=== PATIENT | female | born 2000 | race Caucasian/White ===

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

== ENCOUNTER → 2019-01-04 | Outpatient (REF) | payer OTHER ==
[~2019-01-04] MED LIST changes: +ACET-683 PO; +IBUP80TA PO; +PREN1TAB11 PO
== END ==
LOC: M LAB REF 17:13
PROVIDERS: ATTEND Advanced Practice Midwife
DX: Z36.85 Encounter for antenatal screening for Streptococcus B (principal)

== ENCOUNTER 2019-01-24 02:09 | Inpatient (IN) | payer OTHER ==
[~2019-01-24] VITALS: Ht 160 cm; Wt 51.6 kg
[2019-01-24] VITALS (53 sets, daily range): BP systolic 95–144; BP diastolic 50–91
[~2019-01-24 02:09] MED LIST changes: -ACET-683 PO; -IBUP80TA PO; -PREN1TAB11 PO
[2019-01-24] MEDS ORDERED: PENICILLIN G POTASSIUM IV 5 MU in D5W MINI-BAG PLUS 100 ML IV STA ×2 (06:41→10:08)
[2019-01-24] MEDS ORDERED: BUTORPHANOL 2 MG/ML INJ (J0595) IV ONE (06:45)
[2019-01-24] MEDS ORDERED: PROMETHAZINE INJ 25 MG/ML VIAL (J2550) IV PRN (06:45)
[2019-01-24] MEDS ORDERED: BUTORPHANOL 2 MG/ML INJ (J0595) As Ordered ONE (06:47)
[2019-01-24] MEDS ORDERED: PREN1TAB11 PO (07:01)
[2019-01-24 07:09] LABS: HEMOGLOBIN 13.7 g/dl (12.0-15.5); MEAN CORPUSCULAR HEMOGLOBIN 31.4 pg (27.0-33.0); MEAN CORPUSCULAR HGB CONC 35.1 g/dl (32.0-36.5); MEAN CORPUSCULAR VOLUME 89.4 fl (80.0-96.0); PLATELET COUNT, AUTOMATED 303 10^3/uL (150-450); RED BLOOD COUNT 4.36 10^6/uL (4.00-5.40); WHITE BLOOD COUNT 18.5 10^3/uL (4.0-10.0)
[2019-01-24] MEDS ORDERED: PENICILLIN G POTASSIUM IV 2.5 MU in IV 1 EA IV SCH (10:45)
[2019-01-24] MEDS ORDERED: FENTANYL 2MCG/ML ROPIVACAINE 0.2% IN 0.9% NACL 100ML IVBAG As Ordered ONE (11:08)
[2019-01-24] MEDS ORDERED: diphenhydrAMINE INJ 50MG/ML VIAL (J1200) IV PRN (12:30)
[2019-01-24] MEDS ORDERED: NALOXONE INJ 0.4 MG/1 ML VIAL (J2310) IV PRN (12:30)
[2019-01-24] MEDS ORDERED: EPIDURAL COMMENT XX SCH (12:30)
[2019-01-24] MEDS ORDERED: REFRIGERATOR IV KEYS XX PRN (12:30)
[2019-01-24] MEDS: FENTANYL/ROPIVACAINE/NACL BAG 100 ML EPIDURAL SCH ×2 (12:30→19:02)
[2019-01-24] MEDS ORDERED: EPIDURAL/PCA KEYS XX PRN (12:30)
[2019-01-24] MEDS ORDERED: ONDANSETRON 4MG/2ML VIAL (J2405) IV PRN (12:30)
[2019-01-24] MEDS ORDERED: LR 1,000 ML IV SCH (13:00)
[2019-01-24] MEDS ORDERED: OXYTOCIN 30 UNITS IN 0.9% NaCl 500ML IV BAG (J2590) As Ordered ONE (13:04)
[2019-01-24] MEDS: ePHEDrine SULFATE 25 MG/5 ML(5MG/ML) SYRINGE IV PRN ×3 (13:10→14:28)
[2019-01-24] MEDS: PENICILLIN G POTASSIUM IV 2.5 MU in IV 1 EA IV SCH ×2 (14:03→18:15)
--- NOTE | 2019-01-24 15:05 | HPE ---
DATE OF ADMISSION: 01/24/2019 REASON FOR ADMISSION: Labor. HISTORY OF PRESENT ILLNESS: This patient is a 18-year-old 1, para 0 who presents at 38 weeks 6 days estimated gestational age by last menstrual period confirmed by first trimester ultrasound with complaints of contractions. She reports contractions have worsened throughout the night. Denies any vaginal bleeding or leakage of fluid. Her course has been unremarkable. She initiated care in her first trimester and has been appropriate throughout. PAST MEDICAL HISTORY: History of depression and anxiety. PAST SURGICAL HISTORY: Oral surgery. OBSTETRICAL HISTORY: She is 1. MEDICATIONS: Includes: - vitamins. ALLERGIES: She has no known drug allergies. SOCIAL HISTORY: She is a former smoker. She denies any alcohol or drug use during . PHYSICAL EXAMINATION Vital signs are stable. She is afebrile. General appearance: Well appearing, no acute distress. Lungs: Clear to auscultation bilaterally. Cardiovascular: Heart regular rate and rhythm. Abdomen is gravid, nontender. Estimated weight 2800 grams. Cervical exam: Initially was 1 cm, 50% effaced. Reexamined 3 hours later she was 3 cm, 75%, -2 station. LABORATORIES:: Blood type is O positive. Antibody screen is negative. Rubella is immune. RPR is nonreactive. Hepatitis surface antigen negative. HIV is negative. Hep C is nonreactive. Chlamydia and gonorrhea screens are negative. She had a normal 1 hour Glucola. She is Group B Streptococcus (GBS) positive. ASSESSMENT: 1. This patient is a 18-year-old 1, para 0 at 38 and 6 in active labor. 2. GBS positive. 3. Reassuring status. PLAN: 1. Admit to labor and delivery, CBC, RPR, type and screen. 2. Antibiotics for GBS prophylaxis. 3. The patient thoroughly counseled in regards to admission to labor and delivery. I discussed medications well as procedures performed in labor and delivery. She has also been verbally consented for emergency surgery, blood products, anesthesia and desires to proceed with admission. [facility]
[2019-01-24] MEDS ORDERED: OXYTOCIN DRIP 30 UNITS in IV 1 EA IV SCH (19:17)
[2019-01-24] MEDS ORDERED: ACETAMINOPHEN 500 MG TAB PO PRN (19:30)
[2019-01-24] MEDS ORDERED: IBUPROFEN 800 MG TAB PO PRN (19:30)
[2019-01-24] MEDS ORDERED: DIBUCAINE 1% OINTMENT 30GM TOP PRN (19:30)
[2019-01-24] MEDS ORDERED: METHYLERGONOVINE MALEATE 0.2 MG TAB PO PRN (19:30)
[2019-01-24] MEDS ORDERED: RHOGAM 300 MCG (1500 IU) INJ (J2790) IM SCH (19:30)
[2019-01-24] MEDS ORDERED: MOM 30ML SUSPENSION UDC PO PRN (19:30)
[2019-01-24] MEDS ORDERED: IBUPROFEN 600 MG TAB PO PRN (19:30)
[2019-01-24] MEDS ORDERED: ANUSOL HC CREAM 30GM TOP PRN (19:30)
[2019-01-24] MEDS ORDERED: MEASLES,MUMPS,RUBELLA VACCINE INJ (MMR-II) (90707) SC SCH (19:30)
[2019-01-24] MEDS ORDERED: ACETAMINOPHEN TAB 650MG DOSE (2X325MG) PO PRN (19:30)
[2019-01-24] MEDS ORDERED: DOCUSATE SODIUM 100 MG CAP PO PRN (19:30)
[2019-01-24] MEDS ORDERED: SLF 3 ML SYR IV SCH (22:00)
[2019-01-25 06:00] VITALS: BP 117/82
--- NOTE | 2019-01-25 06:26 | DN ---
DATE OF PROCEDURE: 01/24/2019 TIME OF : 1747 GENDER: Female. APGARS: 8 and 9. WEIGHT: 2260 grams or 5 pounds 0 ounces. LACERATIONS: None. ANESTHESIA: Epidural. COUNTS: 5 laparotomy sponges accounted for prior to and after delivery. DELIVERY NOTE: On 01/24/2019, at 1747, Ms. Truong, a 18-year-old, 1, now para 1, had a spontaneous vaginal delivery of viable female , Apgars 8 and 9, and weight was 2260 grams or 5 pounds 0 ounces. Head was delivered occiput anterior (OA) over an intact perineum followed by delivery of the shoulders and corpus. Infant was handed to mom with a good cry. Cord was clamped times two and was cut by the father of baby under my direction. Placenta was then drained and delivered grossly intact. A premixed bag of 500 mL of normal saline with 30 units of Pitocin was then bolused along with uterine massage until the uterus was firm. On inspection, the cervix, vagina and perineum was grossly intact and hemostatic. Mom and baby in recovery on stable condition.
[2019-01-25] MEDS: PRENATAL VITAMINS CHEWABLE TABLET PO SCH (07:49)
[2019-01-25 18:24] VITALS: BP 130/81
[2019-01-26 05:50] VITALS: BP 103/66
[2019-01-26] MEDS ORDERED: IBUP80TA PO (06:59)
[2019-01-26] MEDS ORDERED: ACET-683 PO (06:59)
[2019-01-26] MEDS: PRENATAL VITAMINS CHEWABLE TABLET PO SCH (07:59)
== END 2019-01-26 11:35 | disposition home or self-care (01) | DRG 560 ==
LOC: M LDO 02:09 → M LDI 06:26 → M OBS 20:21
PROVIDERS: ADMIT Obstetrics & Gynecology; ATTEND Obstetrics & Gynecology
PROC: 10E0XZZ Delivery of Products of Conception, External Approach (ICD-10-PCS; principal; 2019-01-24)
DX: O99.824 Streptococcus B carrier state complicating childbirth (principal); Z37.0 Single live birth; Z3A.38 38 weeks gestation of pregnancy

== ENCOUNTER 2020-01-08 14:41 | Emergency (ER) | payer OTHER ==
[~2020-01-08] VITALS: Ht 157.5 cm; Wt 36.5 kg
[~2020-01-08 14:41] MED LIST changes: +ACET-683 PO; +IBUP80TA PO; +PREN1TAB11 PO
[2020-01-08] MEDS ORDERED: ALBUTEROL 90 MCG/ACT 8GM HFA INHALER INH ONE (15:45)
[2020-01-08] MEDS ORDERED: ACETAMINOPHEN TAB 650MG DOSE (2X325MG) PO ONE (16:15)
[2020-01-08] MEDS ORDERED: PROAAER10 INH (17:34)
--- NOTE | 2020-01-08 17:35 | REPVR ---
PROCEDURE INFORMATION: Exam: XR Chest, 1 View Exam date and time: 01/08/2020 4:56 PM Age: 19 years old Clinical indication: Cough; Additional info: Cold sympt TECHNIQUE: Imaging protocol: XR of the chest Views: 1 view. COMPARISON: No relevant prior studies available. FINDINGS: Lungs: Small patchy infiltrate in the left lung base with the surrounding interstitial prominence. Pleural space: Unremarkable. No pleural effusion. No pneumothorax. Heart/Mediastinum: Unremarkable. No cardiomegaly. Bones/joints: Unremarkable. IMPRESSION: Left lower lobe pneumonia Electronically signed by: Sana Wu On 01/08/2020 17:35:19 PM
[2020-01-08] MEDS ORDERED: LEVA1TAB2 PO (17:39)
[2020-01-08 17:47] VITALS: BP 105/66
== END 2020-01-08 17:49 | disposition home or self-care (01) ==
LOC: M ED 14:41
DX: J18.9 Pneumonia, unspecified organism (principal); R50.9 Fever, unspecified; F17.200 Nicotine dependence, unspecified, uncomplicated

== ENCOUNTER 2020-01-30 20:46 | Emergency (ER) | payer OTHER ==
[~2020-01-30] VITALS: Ht 157.5 cm; Wt 35.2 kg
[~2020-01-30 20:46] MED LIST changes: +LEVA1TAB2 PO; +PROAAER10 INH
[2020-01-30] MEDS ORDERED: SUCRALFATE 1 GM TAB PO ONE (21:00)
[2020-01-30 22:01] VITALS: BP 127/78
== END 2020-01-30 22:02 | disposition home or self-care (01) ==
LOC: EDBD 20:46 → M ED 20:46
DX: R09.89 Other specified symptoms and signs involving the circulatory and respiratory systems (principal); T18.128A Food in esophagus causing other injury, initial encounter; R11.10 Vomiting, unspecified; Y92.89 Other specified places as the place of occurrence of the external cause; F41.9 Anxiety disorder, unspecified

== ENCOUNTER → 2021-03-13 | Outpatient (REF) | payer OTHER ==
[2021-03-13 17:11] LABS: HEMATOCRIT 39.1 % (36.0-47.0); HEMOGLOBIN 13.4 g/dl (12.0-15.5); MEAN CORPUSCULAR HEMOGLOBIN 30.7 pg (27.0-33.0); MEAN CORPUSCULAR HGB CONC 34.3 g/dl (32.0-36.5); MEAN CORPUSCULAR VOLUME 89.5 fl (80.0-96.0); PLATELET COUNT, AUTOMATED 255 10^3/uL (150-450); RED BLOOD COUNT 4.37 10^6/uL (4.00-5.40); WHITE BLOOD COUNT 11.2 10^3/uL (4.0-10.0)
[2021-03-13 18:28] LABS: HCG, SERUM QUANTITATIVE 3173 MIU/ML; HEPATITIS B SURFACE ANTIGEN NEGATIVE (NEGATIVE); HEPATITIS C VIRUS ABY INDEX 0.1 INDEX (<0.8); HIV 1&2 SCREEN CENTAUR NEGATIVE (NEGATIVE)
== END ==
LOC: M LAB REF 16:38
PROVIDERS: ATTEND Obstetrics & Gynecology
DX: Z32.01 Encounter for pregnancy test, result positive (principal)

== ENCOUNTER → 2021-03-20 | Outpatient (REF) | payer OTHER ==
[~2021-03-20] MED LIST changes: +MISO200T56 PO
== END ==
LOC: M LAB REF 16:35
PROVIDERS: ATTEND Advanced Practice Midwife
DX: O20.0 Threatened abortion (principal); R31.9 Hematuria, unspecified; Z3A.00 Weeks of gestation of pregnancy not specified

== ENCOUNTER 2021-03-21 12:28 | Emergency (ER) | payer OTHER ==
[~2021-03-21] VITALS: Ht 157.5 cm; Wt 44.7 kg
[~2021-03-21 12:28] MED LIST changes: -MISO200T56 PO
[2021-03-21 13:30] LABS: BASO % 0.2 % (0.0-1.0); EOS # 0.1 10^3/uL (0.0-0.5); EOS % 0.4 % (0.0-3.0); HEMATOCRIT 39.1 % (36.0-47.0); HEMOGLOBIN 13.3 g/dl (12.0-15.5); LYMPH # 2.1 10^3/uL (1.5-5.0); LYMPH % 10.7 % (24.0-44.0); MEAN CORPUSCULAR HEMOGLOBIN 30.8 pg (27.0-33.0); MEAN CORPUSCULAR VOLUME 90.5 fl (80.0-96.0); MONO # 0.8 10^3/uL (0.0-0.8); MONO % 4.3 % (2.0-8.0); NEUTROPHILS # 16.4 10^3/uL (1.5-8.5); NEUTROPHILS % 83.9 % (36.0-66.0); PLATELET COUNT, AUTOMATED 292 10^3/uL (150-450); RED BLOOD COUNT 4.32 10^6/uL (4.00-5.40); WHITE BLOOD COUNT 19.5 10^3/uL (4.0-10.0)
[2021-03-21] MEDS ORDERED: MORPHINE 4 MG/ML 1ML VIAL/SYRINGE (J2270) IV ONE (13:45)
[2021-03-21] MEDS ORDERED: NS 1,000 ML IV ONE (13:45)
[2021-03-21 13:55] LABS: BLOOD UREA NITROGEN 7 MG/DL (7-18); CALCIUM LEVEL 9.2 MG/DL (8.5-10.1); CARBON DIOXIDE LEVEL 29 MEQ/L (21-32); CHLORIDE LEVEL 106 MEQ/L (98-107); CREATININE FOR GFR 0.51 MG/DL (0.55-1.30); GLOMERULAR FILTRATION RATE > 60.0 (>60); GLUCOSE, FASTING 107 MG/DL (70-100); HCG, SERUM QUANTITATIVE 641 MIU/ML; POTASSIUM SERUM 4.3 MEQ/L (3.5-5.1); SODIUM LEVEL 139 MEQ/L (136-145)
--- NOTE | 2021-03-21 13:55 | REP ---
INDICATION: miscarriage. COMPARISON: None. TECHNIQUE: Transabdominal scanning with Doppler FINDINGS: Within the uterus there is an elongated slightly irregular anechoic structure with partial increased echoes surrounding it consistent with a decidual reaction. Within the gestational sac there is echogenic material the mean crown-rump length measurement of which is consistent with a 9 week 4 day gestational age. Doppler of the pole shows no cardiac activity. Mixed echoes are seen adjacent to the developing chorion. IMPRESSION: There is evidence of demise and impending spontaneous . Multifocal subchorionic hemorrhages are also identified. <Electronically signed by Cabrera Huertas > 03/21/21 [id number]
[2021-03-21] MEDS ORDERED: MISO200T56 PO (15:07)
[2021-03-21] MEDS ORDERED: PERC5TAB12 PO (15:07)
[2021-03-21] MEDS ORDERED: ONDANSETRON 4MG/2ML VIAL IV ONE (15:10)
[2021-03-21] MEDS ORDERED: MORPHINE 2 MG/ML 1ML VIAL (J2270) IV ONE (15:10)
[2021-03-21 15:55] VITALS: BP 134/85
== END 2021-03-21 16:02 | disposition home or self-care (01) ==
LOC: M ED 12:28
DX: O02.1 Missed abortion (principal); O46.91 Antepartum hemorrhage, unspecified, first trimester; Z79.899 Other long term (current) drug therapy
CPT/HCPCS: 76801; 80048; 84702; 85025; 86850; 86900; 86901; 96361; 96374; 96375; 96376; 99284; J2270; J2405

== ENCOUNTER 2021-07-03 23:43 | Emergency (ER) | payer OTHER ==
[~2021-07-03] VITALS: Ht 154.9 cm; Wt 42.3 kg
[~2021-07-03 23:43] MED LIST changes: +MISO200T56 PO
[2021-07-03 23:44] VITALS: BP 128/60
[2021-07-04] MEDS ORDERED: ACETAMINOPHEN TAB 650MG DOSE (2X325MG) PO ONE (01:15)
== END 2021-07-04 01:31 | disposition home or self-care (01) ==
LOC: M ED 23:43
DX: S69.92XA Unspecified injury of left wrist, hand and finger(s), initial encounter (principal); W01.0XXA Fall on same level from slipping, tripping and stumbling without subsequent striking against object, initial encounter; Y92.9 Unspecified place or not applicable; Y93.9 Activity, unspecified; Y99.9 Unspecified external cause status; F17.200 Nicotine dependence, unspecified, uncomplicated

== ENCOUNTER → 2022-01-22 | Outpatient (CLI) | payer OTHER ==
[2022-01-22 13:54] LABS: HEMATOCRIT 37.1 % (36.0-47.0); HEMOGLOBIN 12.5 g/dl (12.0-15.5); MEAN CORPUSCULAR HEMOGLOBIN 30.5 pg (27.0-33.0); MEAN CORPUSCULAR HGB CONC 33.7 g/dl (32.0-36.5); MEAN CORPUSCULAR VOLUME 90.5 fl (80.0-96.0); PLATELET COUNT, AUTOMATED 307 10^3/uL (150-450); WHITE BLOOD COUNT 10.9 10^3/uL (4.0-10.0)
[2022-01-22 15:23] LABS: GC DNA AMPLIFICATION NEGATIVE (NEGATIVE)
[2022-01-22 19:06] LABS: HEPATITIS B SURFACE ANTIGEN NEGATIVE (NEGATIVE); HEPATITIS C VIRUS ABY INDEX < 0.0 INDEX (<0.8); HIV 1&2 SCREEN CENTAUR NEGATIVE (NEGATIVE)
== END ==
LOC: M PLALAB 11:33
PROVIDERS: ATTEND Advanced Practice Midwife
DX: Z34.91 Encounter for supervision of normal pregnancy, unspecified, first trimester (principal)

== ENCOUNTER → 2022-03-14 | Outpatient (CLI) | payer OTHER | LOC: M WHC 13:04 | PROVIDERS: ATTEND Advanced Practice Midwife | DX: Z34.92 Encounter for supervision of normal pregnancy, unspecified, second trimester (principal) ==

== ENCOUNTER → 2022-05-07 | Outpatient (CLI) | payer OTHER ==
[2022-05-07 16:23] LABS: HEMATOCRIT 32.1 % (36.0-47.0); HEMOGLOBIN 10.5 g/dl (12.0-15.5); MEAN CORPUSCULAR HEMOGLOBIN 30.7 pg (27.0-33.0); MEAN CORPUSCULAR HGB CONC 32.7 g/dl (32.0-36.5); MEAN CORPUSCULAR VOLUME 93.9 fl (80.0-96.0); PLATELET COUNT, AUTOMATED 277 10^3/uL (150-450); RED BLOOD COUNT 3.42 10^6/uL (4.00-5.40); WHITE BLOOD COUNT 12.4 10^3/uL (4.0-10.0)
== END ==
LOC: M PLALAB 11:21
PROVIDERS: ATTEND Advanced Practice Midwife
DX: Z34.92 Encounter for supervision of normal pregnancy, unspecified, second trimester (principal); Z3A.00 Weeks of gestation of pregnancy not specified

== ENCOUNTER → 2022-06-27 | Outpatient (CLI) | payer OTHER | LOC: M PLALAB 13:33 | PROVIDERS: ATTEND Advanced Practice Midwife | DX: Z34.83 Encounter for supervision of other normal pregnancy, third trimester (principal) ==

== ENCOUNTER → 2022-06-27 | Outpatient (CLI) | payer OTHER | LOC: M WHC 14:39 | PROVIDERS: ATTEND Obstetrics & Gynecology | DX: O26.843 Uterine size-date discrepancy, third trimester (principal) ==

== ENCOUNTER → 2022-07-09 | Outpatient (REF) | payer OTHER | LOC: M PLALAB 14:36 | PROVIDERS: ATTEND Obstetrics & Gynecology | DX: Z34.03 Encounter for supervision of normal first pregnancy, third trimester (principal) ==

== ENCOUNTER → 2022-07-11 | Outpatient (CLI) | payer OTHER | LOC: M LAB 07:54 | PROVIDERS: ATTEND Advanced Practice Midwife | DX: O99.810 Abnormal glucose complicating pregnancy (principal); Z3A.00 Weeks of gestation of pregnancy not specified ==

== ENCOUNTER 2022-09-01 21:21 | Emergency (ER) | payer OTHER ==
[~2022-09-01 21:21] MED LIST changes: +FERR325T3 PO
[2022-09-01 22:04] LABS: HEMATOCRIT 46.9 % (36.0-47.0); HEMOGLOBIN 14.2 g/dl (12.0-15.5); MEAN CORPUSCULAR HEMOGLOBIN 27.5 pg (27.0-33.0); MEAN CORPUSCULAR HGB CONC 30.3 g/dl (32.0-36.5); MEAN CORPUSCULAR VOLUME 90.9 fl (80.0-96.0); PLATELET COUNT, AUTOMATED 358 10^3/uL (150-450); RED BLOOD COUNT 5.16 10^6/uL (4.00-5.40); WHITE BLOOD COUNT 17.6 10^3/uL (4.0-10.0)
[2022-09-01 22:16] LABS: ATYPICAL LYMPH 2 % (0-5); EOSINOPHILS 3 % (0-3); HYPOCHROMASIA 1+; LYMPHOCYTES 32 % (16-44); METAMYELOCYTES 1 % (0-0); MONOCYTES 5 % (0-5); NEUTROPHILS 55 % (28-66); PLATELET ESTIMATE NORMAL (NORMAL)
[2022-09-01 22:29] LABS: ETHYL ALCOHOL (ETHANOL) < 0.003 % (0.000-0.010)
[2022-09-01 22:30] LABS: ACETAMINOPHEN LEVEL < 2.0 UG/ML (10.0-20.0)
[2022-09-01 22:31] LABS: CPK CREATINE PHOSPHOKINASE 257 U/L (34-145); SALICYLATE LEVEL < 3.0 MG/DL (<30)
[2022-09-01 22:39] LABS: AMPHETAMINES LEVEL URINE NEGATIVE (NEGATIVE); BARBITURATES URINE NEGATIVE (NEGATIVE); BENZODIAZEPINES URINE NEGATIVE (NEGATIVE); COCAINE METABOLITE URINE NEGATIVE (NEGATIVE); METHADONE URINE NEGATIVE (NEGATIVE); OPIATES URINE NEGATIVE (NEGATIVE); PHENCYCLIDINE URINE NEGATIVE (NEGATIVE)
[2022-09-01 22:41] LABS: ALBUMIN 3.7 G/DL (3.2-5.2); ALKALINE PHOSPHATASE 158 U/L (46-116); ALT/SGPT 19 U/L (7.0-40); AST/SGOT 31 U/L (<34); BILIRUBIN,DIRECT < 0.1 MG/DL (<0.4); BILIRUBIN,TOTAL 0.2 MG/DL (0.3-1.2); BLOOD UREA NITROGEN 16 MG/DL (9-23); CALCIUM LEVEL 8.7 MG/DL (8.5-10.1); CARBON DIOXIDE LEVEL 19 MMOL/L (20-31); CHLORIDE LEVEL 99 MMOL/L (98-107); CREATININE FOR GFR 1.11 MG/DL (0.55-1.30); GLOMERULAR FILTRATION RATE > 60.0 (>60); GLUCOSE, FASTING 439 MG/DL (60-100); SODIUM LEVEL 135 MMOL/L (136-145); THYROID STIMULATING HORMONE 4.779 uIU/ML (0.55-4.78); TOTAL PROTEIN 7.5 G/DL (5.7-8.2)
[2022-09-01 22:42] LABS: CANNABINOIDS URINE POSITIVE (NEGATIVE)
[2022-09-01] MEDS ORDERED: NS 1,000 ML IV ONE (23:40)
[2022-09-02 03:38] VITALS: BP 107/58
== END 2022-09-02 03:46 | disposition home or self-care (01) ==
LOC: M ED 21:21 → EDBD 21:21 → M ED 09-02 03:46
DX: F19.10 Other psychoactive substance abuse, uncomplicated (principal)

== ENCOUNTER 2024-11-11 17:09 | Emergency (ER) | payer OTHER, SELFPAY ==
[~2024-11-11] VITALS: Ht 157.5 cm; Wt 55.4 kg
[~2024-11-11 17:09] MED LIST changes: -MISO200T56 PO; +MISO200T83 PO
[2024-11-11 17:12] VITALS: TEMP 97.4
[2024-11-11 19:50] LABS: BASO # 0.1 10^3/uL (0.0-0.2); BASO % 0.3 % (0.0-1.0); EOS # 0.2 10^3/uL (0.0-0.5); EOS % 1.0 % (0.0-3.0); LYMPH # 2.8 10^3/uL (1.5-5.0); LYMPH % 18.4 % (24.0-44.0); MONO # 1.2 10^3/uL (0.0-0.8); MONO % 7.7 % (2.0-8.0); NEUTROPHILS # 10.6 10^3/uL (1.5-8.5); NEUTROPHILS % 70.0 % (36.0-66.0); PLATELET COUNT, AUTOMATED 336 10^3/uL (150-450)
[2024-11-11 20:22] LABS: KETONE, URINE AUTO RFX NEGATIVE (NEGATIVE); NITRITE, URINE AUTO RFX NEGATIVE (NEGATIVE); RBC, URINE AUTO RFX 0 /HPF (0-3); SQUAM EPITHELIAL CELL UR AURFX 4 /HPF (0-6); WBC, URINE AUTO RFX 4 /HPF (0-3)
[2024-11-11 20:27] LABS: ALT/SGPT 35 U/L (7.0-40); AST/SGOT 51 U/L (<34); CALCIUM LEVEL 8.5 MG/DL (8.5-10.1); CARBON DIOXIDE LEVEL 24 MMOL/L (20-31); CHLORIDE LEVEL 105 MMOL/L (98-107); CREATININE FOR GFR 0.51 MG/DL (0.55-1.30); GLOMERULAR FILTRATION RATE > 90.0 (>60); POTASSIUM SERUM 3.9 MMOL/L (3.5-5.1); SODIUM LEVEL 138 MMOL/L (136-145)
[2024-11-11 20:36] LABS: BARBITURATES URINE NEGATIVE (NEGATIVE); BENZODIAZEPINES URINE NEGATIVE (NEGATIVE); COCAINE METABOLITE URINE NEGATIVE (NEGATIVE); METHADONE URINE NEGATIVE (NEGATIVE); OPIATES URINE NEGATIVE (NEGATIVE); PHENCYCLIDINE URINE NEGATIVE (NEGATIVE)
[2024-11-11 20:49] LABS: HCG, SERUM QUANTITATIVE 9969.7 MIU/ML (<4.2)
[2024-11-11 20:49] LABS: AMPHETAMINES LEVEL URINE POSITIVE (NEGATIVE); CANNABINOIDS URINE POSITIVE (NEGATIVE); LEUKOCYTE ESTERASE UR AUTO RFX TRACE (NEGATIVE)
[2024-11-11 21:00] VITALS: BP 133/70; O2SAT 100
== END 2024-11-11 21:26 | disposition admitted as inpatient to this hospital (09) ==
LOC: M ED 17:09
DX: R22.43 Localized swelling, mass and lump, lower limb, bilateral (principal); Z3A.37 37 weeks gestation of pregnancy; F17.210 Nicotine dependence, cigarettes, uncomplicated; Z79.1 Long term (current) use of non-steroidal anti-inflammatories (NSAID)

== ENCOUNTER 2024-11-11 21:15 | Inpatient (IN) | payer OTHER, SELFPAY ==
[~2024-11-11] VITALS: Ht 157.5 cm; Wt 55.3 kg
[~2024-11-11 21:15] MED LIST changes: -IBUP-1022 PO; +IBUP600T42 PO
[2024-11-11 21:32] VITALS: BP 126/67
[2024-11-11] MEDS ORDERED: HOME MED LIST COMPLETE! XX SCH (21:45)
[2024-11-12] MEDS ORDERED: PENICILLIN G POTASSIUM 5 MU IV 5 MU in DEXTROSE 5% (D5W) MINI-BAG PLU 100 ML IV STA (00:21)
[2024-11-12] MEDS ORDERED: TRANEXAMIC ACID INJection 1,000 MG in NS 100 ML IV PRN (00:25)
[2024-11-12] MEDS ORDERED: OXYTOCIN DRIP 30 UNITS in IV 1 EA IV PRN (00:25)
[2024-11-12] MEDS ORDERED: METHYLERGONOVINE MALEATE 0.2 MG/ML 1 ML VIAL IM PRN (00:25)
[2024-11-12] MEDS ORDERED: LIDOCAINE 1% MDV 20 ML VIAL INFIL PRN (00:25)
[2024-11-12] MEDS ORDERED: PEN G POT 3,000,000 UNIT/50 ML 3,000,000 UNIT in IV 1 EA IV SCH (04:25)
== END 2024-11-12 00:44 | disposition left against medical advice (07) | DRG 566 ==
LOC: M LDO 21:15 → M LDI 11-12 00:05
PROVIDERS: ADMIT Obstetrics & Gynecology; ATTEND Obstetrics & Gynecology
DX: O41.03X0 Oligohydramnios, third trimester, not applicable or unspecified (principal); Z91.198 Patient's noncompliance with other medical treatment and regimen for other reason; Z3A.37 37 weeks gestation of pregnancy

== ENCOUNTER 2024-11-14 14:20 | Inpatient (IN) | payer SELFPAY ==
[~2024-11-14] VITALS: Ht 157.5 cm; Wt 56.2 kg
[~2024-11-14 14:20] MED LIST changes: +IBUP-1022 PO; -IBUP600T42 PO
[2024-11-14] MEDS ORDERED: HOME MED LIST COMPLETE! XX SCH (14:40)
[2024-11-14 14:58] VITALS: BP 126/75
[2024-11-14 15:22] LABS: PLATELET COUNT, AUTOMATED 368 10^3/uL (150-450)
[2024-11-14] MEDS: LACTATED RINGER'S 1000 ML IV STA (15:27)
[2024-11-14] MEDS ORDERED: OXYTOCIN DRIP 30 UNITS in IV 1 EA IV PRN ×3 (15:30)
[2024-11-14] MEDS ORDERED: OXYTOCIN INJ 10UNITS/ML 1ML VIAL IM PRN (15:30)
[2024-11-14] MEDS ORDERED: LIDOCAINE 1% MDV 20 ML VIAL INFIL PRN (15:30)
[2024-11-14] MEDS ORDERED: LR 1,000 ML IV SCH ×2 (15:30→16:30)
[2024-11-14] MEDS ORDERED: CARBOPROST TROMETHAMINE 250 MCG/ML AMP IM PRN (15:30)
[2024-11-14] MEDS ORDERED: TRANEXAMIC ACID INJection 1,000 MG in NS 100 ML IV PRN (15:30)
[2024-11-14] MEDS ORDERED: METHYLERGONOVINE MALEATE 0.2 MG/ML 1 ML VIAL IM PRN (15:30)
[2024-11-14] MEDS ORDERED: OXYTOCIN INJ 10UNITS/ML 1ML VIAL IV PRN (15:30)
[2024-11-14] MEDS: miSOPROStol 50 MCG 1/2 TABLET PO PRN (16:02)
[2024-11-14 16:05] VITALS: BP 112/65
[2024-11-14] MEDS ORDERED: PENICILLIN G POTASSIUM 5 MU IV 5 MU in DEXTROSE 5% (D5W) MINI-BAG PLU 100 ML IV STA (16:07)
[2024-11-14 16:17] LABS: HIV 1&2 SCREEN NEGATIVE (NEGATIVE)
[2024-11-14 16:25] LABS: HEPATITIS C VIRUS ABY INDEX 0.06 INDEX (<0.8)
[2024-11-14 17:00] VITALS: BP 99/56
[2024-11-14 18:05] VITALS: BP 122/66
[2024-11-14] MEDS: NICOTINE 21 MG/24 HR 1 EA TRANSDERMAL TD PRN (19:16)
[2024-11-14] MEDS: PENICILLIN G POTASSIUM 5 MU IV 5 MU in DEXTROSE 5% (D5W) MINI-BAG PLU 100 ML IV STA (20:39)
[2024-11-14 21:43] LABS: GC DNA AMPLIFICATION NEGATIVE (NEGATIVE)
[2024-11-14 21:54] LABS: Trichomonas vaginalis (AMP) NOT DETECTED (NEGATIVE)
[2024-11-14] MEDS ORDERED: LR 500 ML IV PRN (22:20)
[2024-11-14] MEDS: FENTANYL/ROPIVACAINE/NACL BAG 100 ML EPIDURAL SCH (22:20)
[2024-11-14] MEDS ORDERED: NALOXONE INJ 0.4 MG/1 ML VIAL IV PRN (22:20)
[2024-11-14] MEDS ORDERED: EPIDURAL/PCA KEYS XX PRN (22:20)
[2024-11-14] MEDS ORDERED: diphenhydrAMINE 50 MG/ML VIAL IV PRN (22:20)
[2024-11-14] MEDS ORDERED: ONDANSETRON 4MG 2ML VIAL IV PRN (22:20)
[2024-11-15] MEDS: PEN G POT 3,000,000 UNIT/50 ML 3,000,000 UNIT in IV 1 EA IV SCH (00:56)
[2024-11-15] MEDS: OXYTOCIN DRIP 30 UNITS in IV 1 EA IV SCH (05:02)
[2024-11-15] MEDS ORDERED: MOM 30 ML SUSPENSION UDC PO PRN (05:10)
[2024-11-15] MEDS ORDERED: ANUSOL HC CREAM 30 GM TOP PRN (05:10)
[2024-11-15] MEDS ORDERED: RHOGAM 300MCG (1500IU) INJ IM SCH (05:10)
[2024-11-15] MEDS ORDERED: DOCUSATE SODIUM 100 MG CAPSULE PO PRN (05:10)
[2024-11-15] MEDS ORDERED: DIBUCAINE 1% OINTMENT 30 GM TOP PRN (05:10)
[2024-11-15 05:18] LABS: VENOUS BASE EXCESS -2.9 (-2.0-2.0); VENOUS HCO3 24.2 MMOL/L (23.0-27.0); VENOUS O2 SATURATION 39.0 % (60.0-80.0); VENOUS PARTIAL PRESSURE CO2 51.1 mmHg (38.0-50.0); VENOUS PARTIAL PRESSURE O2 17.7 mmHg (30.0-50.0); VENOUS PH 7.294 UNITS (7.330-7.430); VENOUS STANDARD HCO3 20.6 MMOL/L; VENOUS TOTAL CO2 25.8 MMOL/L (24.0-28.0)
[2024-11-15 05:19] LABS: CORD GAS ABE A -1.9; CORD GAS HCO3 A 27.5 MMOL/L; CORD GAS O2 SAT A 23.0 %; CORD GAS PCO2 A 67.6 mmHg; CORD GAS PH A 7.228 UNITS; CORD GAS PO2 A 13.6 mmHg; CORD GAS SBC A 21.0 MMOL/L; CORD GAS TCO2 A 29.6 MMOL/L
[2024-11-15 08:30] VITALS: BP 121/72; O2SAT 98
[2024-11-15] MEDS: PRENATAL VITAMINS CHEWABLE TABLET PO SCH (09:00)
[2024-11-15] MEDS: IBUPROFEN 800 MG TAB PO PRN (10:24)
[2024-11-15] MEDS: ACETAMINOPHEN 500 MG TAB PO PRN (14:43)
[2024-11-15 18:00] VITALS: BP 120/63; O2SAT 98
[2024-11-16 05:54] VITALS: BP 106/58; O2SAT 95
[2024-11-16 18:00] VITALS: BP 125/63; O2SAT 98
[2024-11-17 05:51] VITALS: BP 134/86; O2SAT 100
== END 2024-11-17 18:46 | disposition home or self-care (01) | DRG 560 ==
LOC: M LDI 14:20 → M OBS 11-15 08:25
PROVIDERS: ADMIT Obstetrics & Gynecology; ATTEND Obstetrics & Gynecology
PROC: 3E033VJ Introduction of Other Hormone into Peripheral Vein, Percutaneous Approach (ICD-10-PCS; 2024-11-14)
PROC: 10E0XZZ Delivery of Products of Conception, External Approach (ICD-10-PCS; principal; 2024-11-15)
DX: O41.03X0 Oligohydramnios, third trimester, not applicable or unspecified (principal); F17.200 Nicotine dependence, unspecified, uncomplicated; Z3A.37 37 weeks gestation of pregnancy; O99.824 Streptococcus B carrier state complicating childbirth; O99.334 Smoking (tobacco) complicating childbirth; Z37.0 Single live birth